=== PATIENT | female | born 1940 | race Caucasian/White ===

== ENCOUNTER 2020-10-23 09:58 | Observation (INO) | payer SELFPAY ==
[~2020-10-23] VITALS: Ht 167.6 cm; Wt 67.2 kg
--- NOTE | 2020-10-23 10:13 | NUR ---
PT INTUBATED AT 1013 AFTER RECEIVING 20 MG ETOMIDATE 100 MG SUCC. PT CHRIS WELL.
--- NOTE | 2020-10-23 10:17 | NUR ---
BIB EMS AFTER BEING FOUND DOWN THIS AM. LAST KNOWN NORMAL 1899 YESTERDAY. PT WAS FOUND W/ HAIR IN MOUTH. BLOOD COFFEE GROUND EMESIS AROUND MOUTH. PT FOUND INCONTINENT OF URINE. 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 +LOC UNKOWN AMOUNT OF TIME. PER EMS [facility] 6. 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 PT INTUBATED AT 1013 23 AT THE LIP W/ 7.0 ET TUBE. PT CHRIS WELL.
[2020-10-23] MEDS ORDERED: DILTIAZEM 5 MG/ML, 5ML ONE ×2 (10:21→11:10)
[2020-10-23] MEDS ORDERED: SUCCINYLCHOLINE 20 MG/ML, 10ML IVPush ONE (10:30)
[2020-10-23] MEDS ORDERED: DILTIAZEM 5 MG/ML, 5ML IVPush ONE ×2 (10:30→11:30)
[2020-10-23] MEDS ORDERED: LABETALOL 5MG/ML, 20ML IVPush ONE (10:30)
[2020-10-23] MEDS ORDERED: ETOMIDATE 20 MG/10 ML IV ONE (10:30)
[2020-10-23] MEDS ORDERED: PLEASE ENTER HEIGHT AND WEIGHT MC SCH (10:30)
[2020-10-23] MEDS ORDERED: SODIUM CHLORIDE 0.9% 1,000ML IVBOLUS ONE (10:30)
[2020-10-23] MEDS ORDERED: PLEASE ENTER ALLERGIES MC SCH (10:30)
[2020-10-23] MEDS ORDERED: PROPOFOL 100 ML IV PRN (10:30)
[2020-10-23] MEDS ORDERED: SODIUM CHLORIDE FLUSH 10ML SYR IVF ONE (10:30)
[2020-10-23 11:02] LABS: BASOPHILS % (AUTO) 1 % (0-1); EOSINOPHILS % (AUTO) 0 % (1-7); LYMPHOCYTES % (AUTO) 4 % (22-44); MEAN CORPUSCULAR HEMOGLOBIN 32.9 pg (27.0-34.8); MEAN CORPUSCULAR HGB CONC 33.8 g/dL (32.4-35.8); MEAN PLATELET VOLUME 9.6 fL (7.4-10.4); MONOCYTES % (AUTO) 9 % (2-9); NEUTROPHILS % (AUTO) 86 % (42-75); PLATELET COUNT 264 x10^3/uL (130-400); RED BLOOD COUNT 5.63 x10^6/uL (3.82-5.3); RED CELL DISTRIBUTION WIDTH 14.6 % (9.6-15.2)
[2020-10-23 11:05] LABS: INTERNATIONAL NORMALIZED RATIO 1.12 (0.93-1.1); PROTHROMBIN TIME 11.9 Seconds (9.6-11.5)
[2020-10-23 11:07] LABS: ALANINE AMINOTRANSFERASE 40 U/L (12-78); ALBUMIN 3.7 g/dL (3.4-5.0); ANION GAP 17 mmol/L (5-15); CALCIUM 9.7 mg/dL (8.5-10.1); CHLORIDE 96 mmol/L (98-107); CREATININE 1.61 mg/dL (0.55-1.02)
[2020-10-23 11:11] LABS: ALKALINE PHOSPHATASE 236 U/L (45-117); BILIRUBIN,TOTAL 1.3 mg/dL (0.2-1.0); TOTAL PROTEIN 9.4 g/dL (6.4-8.2); TROPONIN I 0.083 ng/mL (0.000-0.045)
[2020-10-23 11:16] LABS: MD SCAN
--- NOTE | 2020-10-23 11:20 | NUR ---
PT TO AND FROM CT SCAN WITH THIS RN, NIKA, RN, AIRBRUSH PAINTER, SPO2 MONITOR, AND RT.
[2020-10-23] MEDS ORDERED: NEOSPORIN OINT. PKT 1 PACKET ONE (11:28)
[2020-10-23] MEDS ORDERED: DILTIAZEM 125 MG in SODIUM CHLORIDE 0.9% 100 ML IV SCH (11:30)
--- NOTE | 2020-10-23 11:40 | NUR ---
TASK RN: 2 RINGS REMOVED FROM RT HAND AND GIVEN TO SON.
--- NOTE | 2020-10-23 11:51 | NUR ---
PER FAMILY PT WAS NONCOMPLIANT DRANK 2-5 BEERS OR MORE PER DAY.
--- NOTE | 2020-10-23 11:52 | NUR ---
TASK RN: 2 MORE RINGS REMOVED FROM LT HAND, GIVEN TO SON.
--- NOTE | 2020-10-23 11:52 | NUR ---
TASK RN: LT ELBOW SKIN TEAR CLOSED W/ STERISTRIPS, ADAPTIC AND OPTIFOAM, BACITRACIN AND ADAPTIC ON RT HAND SKIN TEAR, BACITRACIAN, ADAPTIC AND OPTIFOAM ON RT FOREARM SKIN TEAR.
--- NOTE | 2020-10-23 12:18 | NUR ---
PER ERP DR. BARNETT NO NEED FOR REPOEAT CXR AFTER NG TUBE PUSHED IN FURTHER INTO STOMACH PER CXR REQUEST.
[2020-10-23 12:19] LABS: MICROSCOPIC INDICATED
--- NOTE | 2020-10-23 12:20 | NUR ---
ERP DR. BARNETT AT BEDSIDE FOR RE-EVAL AND SPEAKING TO FAMILY.
--- NOTE | 2020-10-23 12:22 | NUR ---
PT TO BE PLACED ON COMFORT CARE PER PT'S SON'S DECISION AND TO BE EXTUBATED.
[2020-10-23 12:30] LABS: AMPHETAMINE SCREEN, URINE Negative (Negative); BARBITURATE SCREEN, URINE Negative (Negative); BENZODIAZEPINE SCREEN, URINE Negative (Negative); CANNABINOID SCREEN, URINE Negative (Negative); COCAINE SCREEN, URINE Negative (Negative); METHADONE SCREEN, URINE Negative (Negative); OPIATE SCREEN, URINE Negative (Negative)
[2020-10-23] MEDS ORDERED: MORPHINE SULFATE 4 MG/ML, 1ML IVPush ONE (12:30)
--- NOTE | 2020-10-23 12:31 | NUR ---
PT EXTUBATED. PT CHRIS WELL.
[2020-10-23] MEDS ORDERED: MORPHINE SULFATE 4 MG/ML, 1ML ONE ×2 (12:33→20:42)
--- NOTE | 2020-10-23 12:37 | NUR ---
SON, JESSICA GALLARDO FOR ANY QUESTIONS CALL [phone] OR [phone]
[2020-10-23 12:53] VITALS: BP 98/63
--- NOTE | 2020-10-23 12:54 | NUR ---
AVINASH FROM [employer] STATES PT IS NOT SUITABLE FOR [employer] DONATION AND SINCE PT CONTINUES TO HAVE A HEART BEAT TO CALL ONCE PT REACHES ASYSTOLE AND HAS TOD.
[2020-10-23] MEDS ORDERED: MORPHINE SULFATE 4 MG/ML, 1ML IVPush PRN (13:30)
--- NOTE | 2020-10-23 13:33 | NUR ---
REPORT GIVEN TO AIDEN FONSECA RN. ALL QUESTIONS ANSWERED. AWAITING PT TRANSPORT.
[2020-10-23] MEDS ORDERED: SUCCINYLCHOLINE 20 MG/ML, 10ML ONE (13:58)
[2020-10-23] MEDS ORDERED: ETOMIDATE 20 MG/10 ML ONE (13:58)
[2020-10-23] MEDS ORDERED: LORazepam 2 MG/ML, 1ML IVPush PRN (14:00)
[2020-10-23] MEDS ORDERED: ONDANSETRON 2MG/ML, 2ML IVPush PRN (14:00)
[2020-10-23] MEDS: morphine SULFATE 10 MG/ML, 1ML IVPush PRN ×2 (14:25→20:45)
== END 2020-10-24 02:50 | disposition expired ==
LOC: ED 11:30 → EDIP 13:16 → INTOOBSV 13:16 → 4NW 13:43
PROVIDERS: ADMIT Hospitalist; ATTEND Hospitalist
DX: I63.9 Cerebral infarction, unspecified (principal); S00.03XA Contusion of scalp, initial encounter; S00.83XA Contusion of other part of head, initial encounter; J96.01 Acute respiratory failure with hypoxia; I10 Essential (primary) hypertension; E78.5 Hyperlipidemia, unspecified; I48.20 Chronic atrial fibrillation, unspecified; N17.9 Acute kidney failure, unspecified; I16.1 Hypertensive emergency; E87.2 Acidosis; M48.02 Spinal stenosis, cervical region; F10.20 Alcohol dependence, uncomplicated; F17.210 Nicotine dependence, cigarettes, uncomplicated; Z51.5 Encounter for palliative care; Z79.899 Other long term (current) drug therapy; W19.XXXA Unspecified fall, initial encounter; Y93.89 Activity, other specified; Y92.039 Unspecified place in apartment as the place of occurrence of the external cause
CPT/HCPCS: 36415; 70450; 70486; 71045; 72125; 80053; 80307; 80320; 81001; 83605; 83735; 84145; 84484; 85025; 85610; 85730; 87040; 87070; 87205; 93005; 94002; 96361; 96365; 96366; 96368; 96375; 96376; 99291; 99292; G0378; J0330; J2270; J2704; J7030; G0480